=== PATIENT | female | born 1990 | race Caucasian/White ===

== ENCOUNTER → 2025-01-06 13:23 | Outpatient (REF) | payer BC, SELFPAY | LOC: PNTC 13:23 | PROVIDERS: ATTENDING PHYSICIAN Student in an Organized Health Care Education/Training Program | DX: O09.519 Supervision of elderly primigravida, unspecified trimester (principal) | CPT/HCPCS: 36415; 76801; 76813 ==

== ENCOUNTER → 2025-03-03 13:27 | Outpatient (REF) | payer BC, SELFPAY | LOC: PNTC 13:27 | PROVIDERS: ATTENDING PHYSICIAN Obstetrics & Gynecology | DX: O09.519 Supervision of elderly primigravida, unspecified trimester (principal); O09.529 Supervision of elderly multigravida, unspecified trimester | CPT/HCPCS: 76811; 76817 ==

== ENCOUNTER → 2025-04-02 10:33 | Outpatient (REF) | payer BC, SELFPAY | LOC: PNTC 10:33 | PROVIDERS: ATTENDING PHYSICIAN Obstetrics & Gynecology | DX: O09.512 Supervision of elderly primigravida, second trimester (principal) | CPT/HCPCS: 76816 ==

== ENCOUNTER → 2025-05-26 09:04 | Outpatient (REF) | payer BC, SELFPAY | LOC: PNTC 09:04 | PROVIDERS: ATTENDING PHYSICIAN Student in an Organized Health Care Education/Training Program | DX: O09.513 Supervision of elderly primigravida, third trimester (principal) | CPT/HCPCS: 76816 ==

== ENCOUNTER → 2025-07-23 11:44 | Outpatient (REF) | payer BC, SELFPAY | LOC: PNTC 11:44 | PROVIDERS: ATTENDING PHYSICIAN Obstetrics & Gynecology | DX: O48.0 Post-term pregnancy (principal) | CPT/HCPCS: 59025; 76815 ==

== ENCOUNTER 2025-07-24 20:03 | Inpatient (IN) | payer BC, SELFPAY ==
[2025-07-24 20:17] VITALS: BP 136/79; BMI 27.4
[2025-07-24 20:47] LABS: Urine Character Clear (Clear)
[2025-07-24] MEDS: TYLENOL 650 MG PO (20:50)
[2025-07-24 21:01] LABS: ALT (SGPT) 20 U/L (0-35); AST (SGOT) 27 U/L (14-36); Albumin 4.0 g/dl (3.5-5.0); Alkaline Phosphatase 195 U/L (38-126); Blood Urea Nitrogen 14 mg/dl (7-17); Calcium 9.4 mg/dl (8.4-10.2); Carbon Dioxide 21 mmol/L (22-30); Chloride 107 mmol/L (98-107); Estimated Creatinine Clearance 95 ml/min; Glucose 97 mg/dl (70-99); Potassium 4.1 mmol/L (3.5-5.1); Sodium 134 mmol/L (135-145); Total Protein 7.0 g/dl (6.3-8.2); eGFR > 60.00
[2025-07-24 21:22] LABS: Hematocrit 36.9 % (37.0-47.0); Hemoglobin 12.5 g/dL (12.0-16.0); Mean Corp Hgb Conc. 33.9 g/dL (33.0-37.0); Mean Corpuscular Volume 84.1 fL (81.0-99.0); Platelet Count 187 10^3/uL (130-400); Red Cell Dist. Width 12.8 % (11.5-14.5)
[2025-07-24 21:24] LABS: Absolute Neutrophils -Man Diff 22.8 10^3/uL (1.4-6.5)
[2025-07-24 21:25] LABS: Normal RBC Morphology Yes; Platelets Checked Yes; Total Cells Counted 100
[2025-07-24 21:30] LABS: COVID-19 Antigen Negative (Negative)
[2025-07-24] MEDS: AMPICILLIN 108 MG IV (22:22)
[2025-07-24] MEDS: LR 1000 IV (22:22)
[2025-07-24] MEDS: GENTAMICIN 59.875 MG IV (22:51)
[2025-07-25] MEDS: SUBLIMAZE 100 MCG EPIDURAL (00:14)
[2025-07-25] MEDS: FENTANYL/BUPIVACAINE 100 EPIDURAL ×2 (00:16→07:01)
[2025-07-25] MEDS: PITOCIN 30 UNITS/NSS 500 ML IV (03:20)
[2025-07-25] MEDS: AMPICILLIN 108 MG IV ×4 (03:51→22:10)
[2025-07-25] MEDS: TUMS CHEWABLE TABLET 400 MG PO ×2 (03:51→11:50)
[2025-07-25] MEDS: TYLENOL 650 MG PO ×2 (04:16→11:55)
[2025-07-25] MEDS: LR 1000 IV (05:15)
[2025-07-25] MEDS: CYTOTEC 800 MCG SL (15:35)
[2025-07-25] MEDS: HEMABATE 250 MCG IM (15:40)
[2025-07-25 16:20] LABS: Hematocrit 35.5 % (37.0-47.0); Hemoglobin 12.3 g/dL (12.0-16.0); Mean Corp Hgb Conc. 34.6 g/dL (33.0-37.0); Mean Corpuscular Volume 84.9 fL (81.0-99.0); Platelet Count 184 10^3/uL (130-400); Red Cell Dist. Width 13.2 % (11.5-14.5)
[2025-07-25 16:37] LABS: ALT (SGPT) 17 U/L (0-35); AST (SGOT) 25 U/L (14-36); Albumin 3.0 g/dl (3.5-5.0); Alkaline Phosphatase 194 U/L (38-126); Blood Urea Nitrogen 11 mg/dl (7-17); Calcium 8.9 mg/dl (8.4-10.2); Carbon Dioxide 20 mmol/L (22-30); Chloride 108 mmol/L (98-107); Estimated Creatinine Clearance 64 ml/min; Glucose 94 mg/dl (70-99); Potassium 3.9 mmol/L (3.5-5.1); Sodium 131 mmol/L (135-145); Total Protein 5.6 g/dl (6.3-8.2); eGFR > 60.00
[2025-07-25 16:44] LABS: INR 0.99; PT 13.4 Sec (11.4-14.6)
[2025-07-25 16:48] LABS: APTT 28.2 Sec (23.4-35.0); Fibrinogen 623 MG/DL (199-459)
[2025-07-25] MEDS: MAGNESIUM SULFATE 100 IV (16:53)
[2025-07-25] MEDS: MAGNESIUM SULFATE 40 GRAM 1000 IV (17:18)
[2025-07-25] MEDS: MOTRIN 600 MG PO (20:06)
[2025-07-25 21:18] LABS: Magnesium 3.2 mg/dl (1.6-2.3)
[2025-07-25] MEDS: COLACE PO (21:18)
[2025-07-25] MEDS: GENTAMICIN 59.875 MG IV (23:29)
[2025-07-26 02:09] LABS: ALT (SGPT) 15 U/L (0-35); AST (SGOT) 26 U/L (14-36); Albumin 2.1 g/dl (3.5-5.0); Alkaline Phosphatase 137 U/L (38-126); Blood Urea Nitrogen 9 mg/dl (7-17); Calcium 7.8 mg/dl (8.4-10.2); Carbon Dioxide 22 mmol/L (22-30); Chloride 109 mmol/L (98-107); Estimated Creatinine Clearance 85 ml/min; Glucose 106 mg/dl (70-99); Magnesium 4.9 mg/dl (1.6-2.3); Potassium 3.8 mmol/L (3.5-5.1); Sodium 131 mmol/L (135-145); Total Protein 4.3 g/dl (6.3-8.2); eGFR > 60.00
[2025-07-26 02:26] LABS: Hematocrit 22.4 % (37.0-47.0); Hemoglobin 7.8 g/dL (12.0-16.0); Mean Corp Hgb Conc. 34.8 g/dL (33.0-37.0); Mean Corpuscular Volume 83.6 fL (81.0-99.0); Nucleated Red Blood Cells % 0 %; Platelet Count 156 10^3/uL (130-400); Red Cell Dist. Width 13.2 % (11.5-14.5)
[2025-07-26] MEDS: TYLENOL 650 MG PO ×2 (04:07→19:45)
[2025-07-26] MEDS: LR 1000 IV (06:37)
[2025-07-26] MEDS: FERRLECIT 110 MG IV (08:39)
[2025-07-26] MEDS: COLACE 100 MG PO ×2 (09:11→19:44)
[2025-07-26] MEDS: MOTRIN 600 MG PO ×2 (12:17→19:44)
[2025-07-26] MEDS: MAGNESIUM SULFATE 40 GRAM 1000 IV (13:08)
[2025-07-27] MEDS: MOTRIN 600 MG PO (03:08)
[2025-07-27] MEDS: TYLENOL 650 MG PO (03:08)
[2025-07-27 04:35] LABS: Hematocrit 21.5 % (37.0-47.0); Hemoglobin 7.3 g/dL (12.0-16.0); Mean Corp Hgb Conc. 34.0 g/dL (33.0-37.0); Mean Corpuscular Volume 85.7 fL (81.0-99.0); Nucleated Red Blood Cells % 0 %; Platelet Count 208 10^3/uL (130-400); Red Cell Dist. Width 13.2 % (11.5-14.5)
[2025-07-27 04:38] LABS: ALT (SGPT) 16 U/L (0-35); AST (SGOT) 23 U/L (14-36); Albumin 2.6 g/dl (3.5-5.0); Alkaline Phosphatase 128 U/L (38-126); Blood Urea Nitrogen 10 mg/dl (7-17); Calcium 8.1 mg/dl (8.4-10.2); Carbon Dioxide 26 mmol/L (22-30); Chloride 108 mmol/L (98-107); Estimated Creatinine Clearance 95 ml/min; Glucose 67 mg/dl (70-99); Potassium 4.5 mmol/L (3.5-5.1); Sodium 135 mmol/L (135-145); Total Protein 4.9 g/dl (6.3-8.2); eGFR > 60.00
[2025-07-27] MEDS: COLACE 100 MG PO (08:03)
[2025-07-29 14:48] LABS: Syphilis/T. pallidum Ab Reflex Negative (Negative)
== END 2025-07-27 14:26 | disposition home or self-care (01) | DRG 768 ==
LOC: LDRP 20:03
PROVIDERS: Student in an Organized Health Care Education/Training Program; ADMITTING PHYSICIAN Obstetrics & Gynecology
PROC: 10907ZC Drainage of Amniotic Fluid, Therapeutic from Products of Conception, Via Natural or Artificial Opening (ICD-10-PCS; 2025-07-24)
PROC: 4A1HXCZ Monitoring of Products of Conception, Cardiac Rate, External Approach (ICD-10-PCS; 2025-07-24)
PROC: 0KQM0ZZ Repair Perineum Muscle, Open Approach (ICD-10-PCS; 2025-07-25)
PROC: 0W3R7ZZ Control Bleeding in Genitourinary Tract, Via Natural or Artificial Opening (ICD-10-PCS; 2025-07-25)
PROC: 10E0XZZ Delivery of Products of Conception, External Approach (ICD-10-PCS; 2025-07-25)
DX: O48.0 Post-term pregnancy (principal); Z37.0 Single live birth; O41.1230 Chorioamnionitis, third trimester, not applicable or unspecified; O72.1 Other immediate postpartum hemorrhage; O70.1 Second degree perineal laceration during delivery; Z3A.41 41 weeks gestation of pregnancy; O99.824 Streptococcus B carrier state complicating childbirth; Z11.52 Encounter for screening for COVID-19; O90.81 Anemia of the puerperium; O14.14 Severe pre-eclampsia complicating childbirth; O77.0 Labor and delivery complicated by meconium in amniotic fluid
CPT/HCPCS: 80053; 81003; 81015; 82570; 83735; 84156; 85025; 85027; 85384; 85610; 85730; 86780; 86850; 86900; 86901; 87086; 87502; 87811; 88307; J2916

== ENCOUNTER 2025-08-13 14:49 | Emergency (ER) | payer BC, SELFPAY ==
[2025-08-13 14:50] VITALS: BP 144/91
--- NOTE | 2025-08-13 15:27 | ED.GENMED ---
History of Present Illness
General
Chief Complaint: Breast Problem
Source: patient
Exam Limitations: none
Time Seen by Provider: 08/13/25 15:17
Nursing documentation reviewed up to this point in time: agreed with
History of Present Illness
History of Present Illness:
Patient is a 35-year-old female status post delivery 2 weeks ago and sent from [facility] office for possible breast infection/abscess. Patient reports she is using' Silver at breast-feeding fraga' and starting last noticed small whiteheads
around her areola of bilateral breast. She started noticing fullness of the left breast and redness to the left breast on Monday 3 days ago and has since developed what she believes is a small abscess that is draining pus. She was seen in [facility]
office given a prescription for oral dicloxacillin but sent here to the ER for evaluation and imaging. She does not feel ill denies any fever or chills.
Phy Exam
General Physical Exam
General Presentation: no apparent distress
General age: appears stated age
General Skin: warm and dry
General Habitus: normal
General Mental: alert
General Hydration: appears well hydrated
Neurological Exam
Neurological Exam: alert and oriented x3
Musculoskeletal Exam
Musculoskeletal Exam: full ROM
Skin Exam
Skin Exam: normal color, warm/dry and other (Right breast with small little whiteheads scattered erythema; left breast however with firm indurated area to the top part of her breast between 10 and 2 o clock with open wound area that is draining
purulent drainage )
Psychiatric Exam
Psychiatric Exam: normal mood/affect
Course
Orders/Labs/Results
Orders:
Orders
08/13/25 15:18
IV Insert/Care/Rem.- Treatment PRN
08/13/25 15:41
Complete Blood Count/With Diff Urgent
Comprehensive Metabolic Panel Urgent
08/13/25 15:43
US Breast Left Ltd [facility]DC Urgent
Reason for Exam: POSSIBLE ABSCESS
08/13/25 16:26
Doxycycline [Vibramycin] 100 mg PO NOW STA
08/13/25 16:43
Dicloxacillin [Dynapen] 500 mg PO NOW STA
Abnormal Lab Results
08/13/25
15:41
RBC 3.63 L 10^6/uL
(4.20-5.40)
Hgb 10.4 L g/dL
(12.0-16.0)
Hct 31.9 L %
(37.0-47.0)
MCHC 32.6 L g/dL
(33.0-37.0)
Plt Count 492 H 10^3/uL
(130-400)
BUN 18 H mg/dl
(7-17)
08/13/25 15:41
08/13/25 15:41
Vital Signs
Initial and Last Documented VS:
Initial Vital Signs
Temp Pulse Resp BP Pulse Ox
97.4 F 67 16 144/91 98
08/13/25 14:50 08/13/25 14:50 08/13/25 14:50 08/13/25 14:50 08/13/25 14:50
Last Documented Vital Signs
Temp Pulse Resp BP Pulse Ox
97.4 F 67 16 144/91 98
08/13/25 14:50 08/13/25 14:50 08/13/25 14:50 08/13/25 14:50 08/13/25 15:31
MDM/Problems Addressed
Differential Diagnosis Includes:
Not limited to cellulitis breast abscess mastitis
MDM/Problems Addressed:
As documented patient is a 35 female with status post vaginal livery with redness drainage to the left breast. She has been using silver breast coverings and has noticed whiteheads to bilateral breast however developed area of induration redness
and drainage to the left breast. She was sent to rule out an abscess. Ultrasound is negative for drainable collection. She denies any fever or chills and is afebrile with a normal white count. First dose of doxycycline given here in the ER.
Case discussed with patient's [facility] on-call Dr. Méndez. She was given a prescription by her OB prior to come to the hospital. per DR Méndez pt was given dicloxacillin. Will give first dose here in the ER. Strict return precautions
given. Blood pressure minimally elevated we will have her follow-up with her [facility] for this Monday. OB also made aware. She has no complaints of headache or blurred vision.
*Radiology
Radiology exam reviewed: radiology read reviewed
*Pulse Oximetry
SaO2: 98
Oxygen Mode of Delivery: Room air
Patient hypoxic: no
*Critical Care Note
Total Time (30-74mins, 75-104mins- exclusive of procedures): Not Applicable
Patient Management
Discussion with other providers: Qualitative Researcher (OBGYN Dr Méndez )
ED Attending Note
-
Portions of this chart may have been created with voice recognition software.� Occasional wrong word or��sound alike� substitutions may have occurred due to the inherent limitations of voice recognition software.
Discharge Plan
Departure
Patient Disposition: Home (Routine Discharge)
Date of Disposition: 08/13/25
Time of Disposition: 16:55
Patient with high blood pressure during this ER visit?: Yes
Condition: Fair
Discharge Problem:
Mastitis
Instructions: Mastitis, BLOOD PRESSURE
Prescriptions:
No Action
No Current Medications
0
Referrals:
Tamica Méndez MD [Active, Gynecology]
Samantha Gross DO [Family Provider, Gynecology]
Activity Restrictions/Additional Instructions:
As discussed continue to take dicloxacillin every 6 hours as previously prescribed by your [facility].
Warm compresses hot showers to affected area several times a day. Follow-up with [facility] on Monday for recheck. Return if any worsening of symptoms include increasing pain swelling redness drainage fever chills
Interventions
Interventions:
*Risk Screen - Suicide Last Done: 08/13/25 14:50
*General Assessment Last Done: 08/13/25 15:52
*Neglect/Abuse Screening Last Done: 08/13/25 14:50
*ED- Fall Risk Assessment Last Done: 08/13/25 15:52
*ED COVID-19 Vaccine History Last Done: 08/13/25 15:52
*ED Influenza Vaccine History Last Done: 08/13/25 15:52
Discharge Date and Time
Print Language: IRANIAN
[2025-08-13 15:36] VITALS: BMI 25.6
[2025-08-13 15:56] LABS: Hematocrit 31.9 % (37.0-47.0); Hemoglobin 10.4 g/dL (12.0-16.0); Mean Corp Hgb Conc. 32.6 g/dL (33.0-37.0); Mean Corpuscular Volume 87.9 fL (81.0-99.0); Nucleated Red Blood Cells % 0 %; Platelet Count 492 10^3/uL (130-400); Red Cell Dist. Width 13.6 % (11.5-14.5)
[2025-08-13 16:37] LABS: ALT (SGPT) 25 U/L (0-35); AST (SGOT) 24 U/L (14-36); Albumin 4.1 g/dl (3.5-5.0); Alkaline Phosphatase 85 U/L (38-126); Blood Urea Nitrogen 18 mg/dl (7-17); Calcium 9.2 mg/dl (8.4-10.2); Carbon Dioxide 25 mmol/L (22-30); Chloride 106 mmol/L (98-107); Estimated Creatinine Clearance 95 ml/min; Glucose 95 mg/dl (70-99); Potassium 4.6 mmol/L (3.5-5.1); Sodium 136 mmol/L (135-145); Total Protein 7.0 g/dl (6.3-8.2); eGFR > 60.00
[2025-08-13] MEDS: DYNAPEN 500 MG PO (16:59)
[2025-08-13 17:15] VITALS: BP 132/72
== END 2025-08-13 17:15 | disposition home or self-care (01) ==
LOC: EMR 14:49
PROVIDERS: Nurse Practitioner; EMERGENCY PHYSICIAN Emergency Medicine; FAMILY PHYSICIAN Obstetrics & Gynecology
DX: O91.12 Abscess of breast associated with the puerperium (principal); R03.0 Elevated blood-pressure reading, without diagnosis of hypertension
CPT/HCPCS: 99284; 76642; 80053; 85025